=== PATIENT | male | born 1990 | race Caucasian/White ===

== ENCOUNTER 2019-12-20 15:45 | Emergency (ER) | payer MEDICAID ==
[~2019-12-20] VITALS: Ht 172.7 cm; Wt 72.3 kg
[2019-12-20 15:52] VITALS: BP 139/84
--- NOTE | 2019-12-20 16:12 | NUR ---
BOGDAN CAZARES AT BEDSIDE.
[2019-12-20] MEDS ORDERED: metroNIDAZOLE 250 MG TAB PO ONE (16:15)
[2019-12-20] MEDS ORDERED: cefTRIAXone 250 MG in LIDOCAINE MPF 1% 0.9 ML IM ONE (16:15)
[2019-12-20] MEDS ORDERED: AZITHROMYCIN 250 MG TAB PO ONE (16:15)
--- NOTE | 2019-12-20 16:17 | NUR ---
Female Extracorporeal Technician accompanied female patient for PELVIC Exam.
--- NOTE | 2019-12-20 16:18 | NUR ---
29 Y/M PRESENTS TO ED FOR DYSURIA X 2 WEEKS. PT REPORTS 2/10 PAIN AND ALSO WHITE DISCHARGE. PT DENIES HEMATURIA OR LOW BACK PAIN. PT A &O X 4, RR EVEN AND UNLABORED. DENIES HEMATURIA. DENIES N/V/F/D. NO HX ALLERGIES-NKDA
[2019-12-20] MEDS ORDERED: cefTRIAXone 250 MG VIAL ONE (16:22)
[2019-12-20] MEDS ORDERED: LIDOCAINE MPF 1% 5 ML ONE (16:23)
[2019-12-20] MEDS ORDERED: metroNIDAZOLE 500 MG TAB PO SCH (16:27)
--- NOTE | 2019-12-20 17:18 | NUR ---
PT AWAKE AND ALERT SITTING UPRIGHT. DENIES PAIN AT THIS TIME. RR EVEN AND UNLABORED. VSS. WILL CONTINUE TO MONITOR
[2019-12-20 17:39] VITALS: BP 126/79
--- NOTE | 2019-12-20 17:39 | NUR ---
Patient discharged with v/s stable. Written and verbal after care instructions given and explained. Patient alert, oriented and verbalized understanding of instructions. Ambulatory with steady gait. All questions addressed prior to discharge. ID band removed. Patient advised to follow up with PMD. Rx of IBUPROFEN 600MG, KEFLEX 500MG, PHENAZOPYRIDINE HYDROCHLORIDE 100MG given. Patient educated on indication of medication including possible reaction and side effects. Opportunity to ask questions provided and answered.
== END 2019-12-20 17:39 | disposition home or self-care (01) ==
LOC: MED 15:45
DX: R30.0 Dysuria (principal); R03.0 Elevated blood-pressure reading, without diagnosis of hypertension; Z11.3 Encounter for screening for infections with a predominantly sexual mode of transmission
CPT/HCPCS: 36415; 81002; 87086; 96372; 99283; J0696; J2001

== ENCOUNTER 2020-07-27 17:36 | Emergency (ER) | payer MEDICAID ==
[~2020-07-27] VITALS: Ht 172.7 cm; Wt 68.0 kg
[2020-07-27 18:15] VITALS: BP 141/64
[2020-07-27 19:25] VITALS: BP 141/64
[2020-07-27 20:50] LABS: APPEARANCE,URINE CLEAR (CLEAR); BILIRUBIN,URINE NEGATIVE (NEGATIVE); BLOOD, URINE NEGATIVE (NEGATIVE); COLOR,URINE YELLOW (YELLOW); LEUKOCYTE ESTERASE ,URINE NEGATIVE (NEGATIVE); NITRITE, URINE NEGATIVE (NEGATIVE); UGLUCOSE NEGATIVE (NEGATIVE)
[2020-07-27] MEDS ORDERED: cefTRIAXone 500 MG in LIDOCAINE MPF 1% 1 ML IM ONE (21:05)
[2020-07-27] MEDS ORDERED: AZITHROMYCIN 250 MG TAB PO SCH (21:05)
--- NOTE | 2020-07-27 21:08 | NUR ---
PATIENT CALLED TO ADMINISTER MEDICATION, NO RESPONSE PATIENT ELOPED FROM FACILITY. DISCHARGE INSTRUCTIONS NOT GIVEN TO PATIENT. DR. OWUSU NOTIFIED.
[2020-07-27] MEDS ORDERED: AZITHROMYCIN 250 MG TAB ONE (21:11)
[2020-07-27] MEDS ORDERED: cefTRIAXone 500 MG VIAL ONE ×2 (21:13→21:14)
[2020-07-27] MEDS ORDERED: LIDOCAINE MPF 1% 5 ML ONE (21:14)
--- NOTE | 2020-08-03 10:30 | NUR ---
LATE ENTRY -- PT HAS LEFT THE FACILITY WITHOUT BEING SEEN BY DR. OWUSU.
== END 2020-07-27 21:08 | disposition left against medical advice (07) ==
LOC: MED 17:36
DX: R30.9 Painful micturition, unspecified (principal)
CPT/HCPCS: 36415; 81003; 87086; 87491; 99281; J0696; J2001; 99283